=== PATIENT | female | born 1980 | race Asian ===

== ENCOUNTER 2017-09-04 09:42 | Emergency (ER) | payer OTHER ==
[~2017-09-04] VITALS: Ht 154.9 cm; Wt 55.0 kg
[2017-09-04] MEDS ORDERED: SODIUM CHLORIDE 0.9% 1,000ML IVBOLUS ONE (11:30)
[2017-09-04] MEDS ORDERED: SODIUM CHLORIDE FLUSH 10ML SYR IVF ONE (11:30)
[2017-09-04 11:50] LABS: HEMATOCRIT 44.5 % (34.6-47.8); HEMOGLOBIN 14.9 g/dL (11.7-16.4); WHITE BLOOD COUNT 7.4 x10^3/uL (3.4-10)
[2017-09-04 12:01] LABS: BLOOD UREA NITROGEN 7 mg/dL (7-18)
[2017-09-04 12:09] LABS: ASPARTATE AMINO TRANSFERASE 12 U/L (15-37)
[2017-09-04 13:43] VITALS: BP 128/82
== END 2017-09-04 13:45 | disposition home or self-care (01) ==
LOC: ED 11:16
DX: I10 Essential (primary) hypertension (principal)
CPT/HCPCS: 36415; 80053; 84703; 85025; 93005; 96360; 96361; 99285; J7030